=== PATIENT | female | born 2005 | race Caucasian/White ===

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

== ENCOUNTER 2023-01-06 18:24 | Emergency (ER) | payer OTHER, SELFPAY ==
[2023-01-06 18:27] VITALS: BP 136/92; PULSE 78; RESP 16; TEMP 37.1; O2SAT 98
--- NOTE | 2023-01-06 18:30 | DI.RAD_ITS ---
Exam(s) XR KNEE RT 3V AP,LAT,JOSE D EXAM: XR KNEE RT 3V AP,LAT,JOSE D CLINICAL HISTORY: pain. TECHNIQUE: 2D digital imaging was performed of the right knee. Three views obtained. AP, lateral an d PA tunnel views were obtained. COMPARISON: No exams were available for comparison FINDINGS: BONES: No acute fracture is present. No bony destructive lesion is seen. JOINTS: The knee is normally aligned. No joint effusion is seen. SOFT TISSUE: Normal. IMPRESSION: Unremarkable radiographs of the right knee. DATA REPOSITORY: RADIATION DOSE DELIVERED:
--- NOTE | 2023-01-06 18:46 | W.ED.GENAD ---
Discharge Plan Disposition Patient Disposition: Home Condition: Stable Discharge Details Clinical Impression: Knee pain, right Primary Care Provider: Marko Cortez ED Provider: Nick Calabrese Home Meds and New Rx's Prescriptions: Continued norethindrone-e.estradiol-iron [.5 (28)] 1.5 mg-30 mcg (21)/75 mg (7) tablet 1 tab PO DAILY Qty: 84 5RF Rx Instructions: 1 tab PO Of only active pills for 2 pill packs then third pill pack take placebo pills; Discharge Instructions Instructions: Knee Pain (ED) Additional Instructions: your xray did not show concerning findings at this time if pain continues in a week follow up with your primary care provider or orthopedics if you feel more ill, have severe worsening pain or fevers return to the emergency department Medical Decision Making 17 yo female who works at an [employer] was at work when she twisted to turn and when doing so had pain in her right knee, denies falls or other injuries. She was unable to leave work and was walking on her leg most of the day afterwards and so came here due to continued pain in the right knee. She arrives stable and appears well. She has anterior knee pain and tenderness along the lateral joint line. There is no swelling of the knee. She has full rom of the knee, intact distal sensation and pulses. Suspect strain of the knee but will obtain xrays to evaluate for possible fx though seems unlikely. No findings on exam or history to suggest septic joint or tendon injury. xray unremarkable on my read, will place in knee brace and provided crutches to use as needed, advised to f/u with pcp if still having painin a week, return precautions given Differential Diagnosis Differential Diagnosis: strain, sprain, contusion, fracture Imaging Data Radiologic Study: Attestation: I personally reviewed and interpreted this imaging study as follows: Imaging: X-Ray My impression: no acute findings HPI General Date/Time Provider Initiated Documentation: 01/06/23 18:35. Limitations to Documentation: no limitations. Information obtained by: patient. History of Present Illness 17 year old F presents to the emergency department with the chief complaint of right knee pain, described as moderate, Quality is described as aching, Patient started experiencing this hour(s) (5) and it has been constant. No relieving factors improve symptom(s), No exacerbating factors reported . Patient notes no other symptoms.. Patient did receive the following treatments prior to arrival, none Related Data Home Medications Medication Instructions Recorded Confirmed norethindrone 1.5 mg-ethinyl 1 tab PO DAILY #84 tabs 05/11/22 01/06/23 estradiol 30 mcg(21)/iron 75 mg(7) tablet (.01/18 (28)) Previous Rx's Medication Instructions Recorded norethindrone 1.5 mg-ethinyl 1 tab PO DAILY #84 tabs 05/11/22 estradiol 30 mcg(21)/iron 75 mg(7) tablet ( FE .01/18 (28)) Allergies Allergy/AdvReac Type Severity Reaction Status Date / Time No Known Allergies Allergy Verified 01/06/23 18:54 General Stated Complaint: Orthopedic ALEXSANDRA: 4 Review of Systems All systems reviewed & are unremarkable except as noted in HPI and below Constitutional Constitutional: Denies chills, Denies fever(s) and Denies weakness Cardiovascular Cardiovascular: Denies chest pain and Denies dyspnea Respiratory Respiratory: Denies cough and Denies dyspnea Gastrointestinal Gastrointestinal: Denies abdominal pain, Denies nausea and Denies vomiting Musculoskeletal Musculoskeletal: Denies joint swelling Integumentary/Breasts Skin/Breast: Denies rash Neurologic Neurologic: Denies weakness PFSH All Active Problems (Updated 01/06/23 @ 19:27 by Nick Calabrese MD) Knee pain, right (Acute) Pelvic pain (Acute) Recent change in frequency of bowel movements (Acute) 12/23/2021. Possible association with menses. Recommended [id number] antidiarrheal agents. Tailor's bunion of right foot (Acute) Chest pain (Acute) Oral contraceptive use (Acute) Dysmenorrhea in adolescent (Acute) Started OCPs 06/08 Routine child health exam (Acute 09/03/13) Normal weight, pediatric, BMI 5th to 84th percentile for age (Acute 09/07/16) Right lower quadrant pain (Acute) Surgical History No significant past surgical history Family History Mother Anxiety Father No problems noted. Brother Anxiety Social History Smoking/Tobacco Use Status: Current every day Tobacco Type: e-cigarettes Smoking risk assessment performed?: Yes Alcohol Intake: never Drug use: Occasionally Substance use type: former substance user and marijuana Household members: family Education Level: high school Details: [employer] Pets and animals: Yes (2 dogs, 1 cat. Brother upstairs has a dog and a hamster) Pets and animals: cat(s) and dog(s) Do you feel safe at home: Yes Do you feel safe in your relationship?: Yes Female Reproductive History Menstrual Age of Menarche: 9 Duration of menses: 6-7 days control method: pills and condoms History History 0 Para Hx # Term Pregnancies Multiple births Hx # Pregnancies Ectopic pregnancies AB induced Hx Number of Living Children AB spontaneous Exam Const General: no acute distress Orientation: alert HENMT Head: normal to inspection Ears: external ears normal General nose exam: external nose normal Mouth: moist mucous membranes Eyes General: appearance normal, both eyes and all related structures Neck Neck: normal visual inspection Resp Effort & Inspection: normal respiratory effort and able to speak in complete sentences Cardio Rate: regular rate Skin General skin exam: no rashes or lesions noted Neuro General: patient alert and patient oriented x3 Extrem General: normal to inspection, full ROM and capillary refill normal Psych Mental Status: mental status grossly normal Course Vital Signs Vital signs: Vital Signs Temperature 37.1 C 01/06/23 18:27 Pulse 78 01/06/23 18:27 Respiratory Rate 16 01/06/23 18:27 Blood Pressure 136/92 H 01/06/23 18:27 Pulse Oximetry 98 01/06/23 18:27 Temperature 37.1 C 01/06/23 18:27 Pulse 78 01/06/23 18:27 Respiratory Rate 16 01/06/23 18:27 Respiratory Effort Normal 01/06/23 18:31 Blood Pressure 136/92 H 01/06/23 18:27 Pulse Oximetry 98 01/06/23 18:27 Oxygen Delivery Method Room Air 01/06/23 18:27 Oxygen Flow Rate 0 01/06/23 18:27 Pain Level 0 01/06/23 18:27
[2023-01-06] MEDS: Acetaminophen 500 MG TAB 1000 MG PO (18:59)
--- NOTE | 2023-01-06 19:55 | DI.VRAD_ITS ---
PROCEDURE INFORMATION: Exam: XR Right Knee Exam date and time: 01/06/2023 7:21 PM Age: 17 years old Clinical indication: Right; Patient HX: R knee pain, no known trauma TECHNIQUE: Imaging protocol: Radiologic exam of the right knee. Views: 3 views. COMPARISON: MR LOWER EXTREMITY RT WO 01/27/2021 10:03 AM FINDINGS: Bones/joints: Normal. Soft tissues: Normal. IMPRESSION: No acute findings. Dictated and Authenticated by: Alonso Mari MD. Ordering:PERNELL Romero MD
--- NOTE | 2023-01-10 16:54 | NUR.NOTE ---
Nursing Note: Accessed chart for [facility] billing purposes.
== END 2023-01-06 20:03 | disposition home or self-care (01) ==
PROVIDERS: Emergency Provider Emergency Medicine; PCP Nurse Practitioner Pediatrics
DX: M25.561 Pain in right knee (principal)
CPT/HCPCS: 73562; 99282; 29505; 99283

== ENCOUNTER 2023-12-24 21:59 | Emergency (ER) | payer OTHER, SELFPAY ==
[2023-12-24 22:03] VITALS: BP 139/79; PULSE 91; RESP 16; TEMP 36.9; O2SAT 97
--- NOTE | 2023-12-24 22:13 | W.ED.GENAD ---
Discharge Plan Disposition Patient Disposition: Home Condition: Stable Discharge Details Clinical Impression: Bilateral wheezing, URI (upper respiratory infection) Primary Care Provider: Marko Cortez ED Provider: Tram Mcgraw Home Meds and New Rx's Prescriptions: New prednisone 20 mg tablet 60 mg PO DAILY 5 Days Qty: 15 0RF No Action norethindrone-e.estradiol-iron [ FE 1.01/18 (28)] 1.5 mg-30 mcg (21)/75 mg (7) tablet 1 tab PO DAILY Qty: 84 5RF Rx Instructions: 1 tab PO Of only active pills for 2 pill packs then third pill pack take placebo pills; Discharge Instructions Instructions: Upper Respiratory Infection (ED), Wheezing (ED) Additional Instructions: Use the albuterol inhaler 1 or 2 puffs every 4-6 hours as needed for wheezing and/or cough with shortness of breath. Please return to the ER if you need to use it more than 4 times in a 24-hour period. Take the prednisone for the next 5 days 3 tablets a day. Consider quitting smoking. Follow up with primary care provider in 3-5 days. Return to ED sooner if any worsening or concerns. Strep swab, COVID and flu swabs are negative at this time. Referrals: Marko Cortez, [facility] [Primary Care Provider] - 3 days HPI General Mode of arrival: ambulatory. Date/Time Provider Initiated Documentation: 12/24/23 22:02. Limitations to Documentation: no limitations. Information obtained by: patient, RN notes reviewed and old records reviewed. HPI Narrative: 18-year-old female presents to the ER with chief complaint of cough and URI type symptoms for the last 2 nights. She reports sore throat as well. Did take DayQuil today at around 7 PM. She does endorse vaping. Denies any chest pain nausea vomiting diarrhea or urinary symptoms. She does have some expiratory wheezes and congestion noted bilaterally on auscultation. Posterior oropharynx is slightly erythemic no exudate noted. Related Data Home Medications Medication Instructions Recorded Confirmed norethindrone 1.5 mg-ethinyl 1 tab PO DAILY #84 tabs 06/14/23 12/24/23 estradiol 30 mcg(21)/iron 75 mg(7) tablet ( FE .01/18 (28)) prednisone 20 mg tablet 60 mg (3 x 20 mg) PO DAILY 5 days 12/24/23 #15 tabs Previous Rx's Medication Instructions Recorded norethindrone 1.5 mg-ethinyl 1 tab PO DAILY #84 tabs 06/14/23 estradiol 30 mcg(21)/iron 75 mg(7) tablet ( FE 1.5/30 (28)) prednisone 20 mg tablet 60 mg (3 x 20 mg) PO DAILY 5 days 12/24/23 #15 tabs Allergies Allergy/AdvReac Type Severity Reaction Status Date / Time No Known Allergies Allergy Verified 12/24/23 22:09 General Stated Complaint: RespSymp ALEXSANDRA: 3 Review of Systems All systems reviewed & are unremarkable except as noted in HPI and below Cardiovascular Cardiovascular: Reports dyspnea Respiratory Respiratory: Reports as per HPI, Reports chest congestion, Reports cough, Denies hemoptysis, Reports dyspnea and Reports wheezing Allergic/Immunologic Allergic/Immunologic: Reports wheezing Exam Narrative Exam Narrative: Constitutional: Alert and oriented x3. Appears stated age. Normal body habitus. Head: Normocephalic, no trauma. Eyes: Pupils PERRL, Red reflex noted, EOM's intact. Eyelids symmetrical without lesions, discharge, or swelling. ENT: Bilateral TM's WNL, scars noted to left tympanic membrane, external ear normal to inspection, no mastoid TTP, swelling, or erythema, Nasal turbinates WNL, no nasal discharge. Normal dentition, Posterior pharynx slightly erythemic, uvula midline, no exudate. Chest: RRR, Normal S1, S2, distal pulses intact. Resp: Lungs scattered expiratory wheezes to auscultation bilaterally and scattered mild rhonchi and congestion. Abdomen: Soft, non-distended, Normoactive bowel sounds all 4 quads. Musculoskeletal: Normal gait, Moves all 4 extremities without difficulty. Skin: No suspicious rashes or lesions. Capillary refill less than 2 sec. Hematologic/Lymphatic: No ecchymosis, no lymphadenopathy. Course Vital Signs Vital signs: Vital Signs Temperature 36.9 C 12/24/23 22:03 Pulse 91 H 12/24/23 22:03 Respiratory Rate 16 12/24/23 22:03 Blood Pressure 139/79 12/24/23 22:03 Pulse Oximetry 97 12/24/23 22:03 Temperature 36.9 C 12/24/23 22:03 Pulse 91 H 12/24/23 22:03 Respiratory Rate 16 12/24/23 22:03 Respiratory Effort Normal 12/24/23 22:07 Respiratory Depth Normal 12/24/23 22:07 Blood Pressure 139/79 12/24/23 22:03 Pulse Oximetry 97 12/24/23 22:03 Oxygen Delivery Method Room Air 12/24/23 22:03 Oxygen Flow Rate 0 12/24/23 22:03 Pain Level 4 12/24/23 22:03 Medical Decision Making 18-year-old female presents to the ER with chief complaint of cough and URI type symptoms for the last 2 nights. She reports sore throat as well. Did take DayQuil today at around 7 PM. She does endorse vaping. Denies any chest pain nausea vomiting diarrhea or urinary symptoms. She does have some expiratory wheezes and congestion noted bilaterally on auscultation. Posterior oropharynx is slightly erythemic no exudate noted. POC strep flu and COVID ordered, DuoNeb and 40 mg of prednisone p.o. Rapid strep negative. On patient reevaluation wheezing has decreased and patient reports that she feels much better. Will give her an albuterol inhaler to go and prednisone 5-day stent. Discussed home care and follow-up care with mom and patient who verbalized understanding. This text was generated using [employer] system, please disregard any oddities of phrase or misspellings. Quality:SDOH Health Related Social Needs: No Data to Display PFSH All Active Problems (Updated 12/24/23 @ 22:54 by Tram Mcgraw NP) URI (upper respiratory infection) (Acute) Bilateral wheezing (Acute) Pelvic pain (Acute) Recent change in frequency of bowel movements (Acute) 12/23/2021. Possible association with menses. Recommended [id number] antidiarrheal agents. Tailor's bunion of right foot (Acute) Chest pain (Acute) Oral contraceptive use (Acute) Dysmenorrhea in adolescent (Acute) Started OCPs 06/08 Routine child health exam (Acute 09/03/13) Normal weight, pediatric, BMI 5th to 84th percentile for age (Acute 09/07/16) Right lower quadrant pain (Acute) Surgical History No significant past surgical history Family History Mother Anxiety Father No problems noted. Brother Anxiety Social History Smoking/Tobacco Use Status: Current every day Tobacco Type: e-cigarettes Smoking risk assessment performed?: Yes Alcohol Intake: never Drug use: Occasionally Substance use type: former substance user and marijuana Household members: family Education Level: high school Details: [employer] Pets and animals: Yes (2 dogs, 1 cat. Brother upstairs has a dog and a hamster) Pets and animals: cat(s) and dog(s) Do you feel safe at home: Yes Do you feel safe in your relationship?: Yes Female Reproductive History Menstrual Age of Menarche: 9 Duration of menses: 6-7 days control method: pills and condoms History History 0 Para Hx # Term Pregnancies Multiple births Hx # Pregnancies Ectopic pregnancies AB induced Hx Number of Living Children AB spontaneous
[2023-12-24 22:20] VITALS: RESP 5
[2023-12-24] MEDS: predniSONE 20 MG TAB 40 MG PO (22:20)
[2023-12-24] MEDS: Albuterol/Ipratropium 3 ML UPD VIAL UPD (22:20)
[2023-12-24] MEDS: Inhaler, Assist Device 1 EACH MC (23:05)
[2023-12-24] MEDS: Albuterol HFA 8 GM 60 PUFF INH IH (23:05)
== END 2023-12-24 23:06 | disposition home or self-care (01) ==
LOC: ER 23:21
PROVIDERS: Emergency Provider Registered Nurse Emergency; PCP Nurse Practitioner Pediatrics
DX: J06.9 Acute upper respiratory infection, unspecified (principal); R06.2 Wheezing; R05.1 Acute cough; R07.0 Pain in throat; R06.02 Shortness of breath
CPT/HCPCS: 94640; 99283; J7512; J7620

== ENCOUNTER → 2024-01-04 11:40 | Outpatient (CLI) | payer OTHER, SELFPAY ==
--- NOTE | 2024-01-04 11:00 | DI.RAD_ITS ---
Exam(s) XR CHEST 2V PA LATERAL EXAM: XR CHEST 2V PA LATERAL CLINICAL HISTORY: evaluate pathology, URI, J06.9 TECHNIQUE: 2D digital imaging was performed of the chest. Two images were obtained. PA and lateral views were obtained. COMPARISON: CR XR CHEST 2V PA LATERAL from 11/25/2020 FINDINGS: MEDIASTINUM: Normal. HEART: Normal. PULMONARY VASCULATURE: Normal. LUNGS: Clear. PLEURAL SPACE: No pleural effusion or pneumothorax. BONE:Within normal limits for the patient's age. OTHER FINDINGS:Normal. IMPRESSION: No acute pulmonary findings. DATA REPOSITORY: RADIATION DOSE DELIVERED:
== END ==
PROVIDERS: PCP Nurse Practitioner Pediatrics; Visit Provider Nurse Practitioner Family
DX: J06.9 Acute upper respiratory infection, unspecified (principal)
CPT/HCPCS: 71046

== ENCOUNTER 2024-06-27 10:18 | Outpatient (REF) | payer OTHER, SELFPAY ==
--- NOTE | 2024-06-27 09:20 | PAPFT_PTH ---
PATIENT: Christelle Valladares LOC: [facility] U#:[id number] AGE/SX: 19/F ROOM: RE06/27/[address]: Vani Calabrese NP : 2005 BED: DIS: 06/27/2024 SPEC #: [id number] RECD: 06/27/24 12:48 STATUS: ASIA REAnamika #: [id number] SCOTT: 06/27/24 09:[address]: Vani Calabrese NP DEPT: [facility] Cytology RECD BY: Ella Lee ENTERED: 06/27/24 12:48 SP TYPE: PAPFT OTHR DR: Marko Cortez NP Tissues: 1 - CX/ENDOCX FOR PAP SMEARS Procedures: PAP THIN PREP/[facility] Screening Comments: [id number] (CHLAMYDIA/GC)
[2024-06-28 11:51] LABS: GC Result Negative (Negative)
[2024-06-28 12:15] LABS: Chlamydia Result Positive (Negative)
== END 2024-06-27 10:19 | disposition home or self-care (01) ==
LOC: LBN 10:18
PROVIDERS: PCP Nurse Practitioner Pediatrics; Visit Provider Nurse Practitioner Women's Health
DX: Z30.41 Encounter for surveillance of contraceptive pills (principal); Z01.419 Encounter for gynecological examination (general) (routine) without abnormal findings; Z12.4 Encounter for screening for malignant neoplasm of cervix; Z11.3 Encounter for screening for infections with a predominantly sexual mode of transmission
CPT/HCPCS: 87491; 87591; 88142

== ENCOUNTER 2024-07-24 11:59 | Outpatient (REF) | payer OTHER, SELFPAY ==
[2024-07-25 12:43] LABS: Chlamydia Result Negative (Negative); GC Result Negative (Negative)
== END 2024-07-24 12:00 | disposition home or self-care (01) ==
LOC: LBN 11:59
PROVIDERS: PCP Nurse Practitioner Pediatrics; Visit Provider Obstetrics & Gynecology
DX: A64 Unspecified sexually transmitted disease (principal); A74.9 Chlamydial infection, unspecified
CPT/HCPCS: 87491; 87591

== ENCOUNTER 2025-07-17 10:04 | Outpatient (REF) | payer OTHER, SELFPAY ==
[2025-07-17 14:45] LABS: HCT 41.9 % (36.0-46.0); HGB 13.8 g/dL (11.2-15.7); MCH 28.8 pg (27.0-33.0); MCHC 32.9 % (32.0-36.0); MCV 88 fL (80-95); MPV 10.6 fL (8.0-11.0); Platelet Count 293 10^3/uL (130-400); RBC 4.79 10^6/uL (3.93-5.22); RDW 13.0 % (11.7-14.6); RDW-SD 41.8 fL; WBC 5.68 10^3/uL (4.4-10.8)
[2025-07-17 15:03] LABS: Hemoglobin A1C 4.7 % (<5.7)
[2025-07-17 15:07] LABS: ALT 25 U/L (10-49); AST 23 U/L (<34); Albumin 4.4 g/dL (3.2-5.0); Alkaline Phosphatase 72 U/L (46-116); Anion Gap 8.9 mmol/L (3-11); BUN 12 mg/dL (9-23); Bilirubin, Total 0.40 mg/dL (0.2-1.2); CO2 23.1 mmol/L (20.0-31.0); Calcium 9.6 mg/dL (8.3-10.6); Chloride 108 mmol/L (98-107); Cholesterol 203 mg/dL (<200); Glucose 80 mg/dL (74-106); HDL Cholesterol 59 mg/dL (>40); Potassium 4.5 mmol/L (3.5-5.1); Sodium 140 mmol/L (136-145); Total Protein 7.1 g/dL (5.7-8.2)
== END 2025-07-17 10:05 | disposition home or self-care (01) ==
LOC: NCHCN 10:04
DX: Z13.0 Encounter for screening for diseases of the blood and blood-forming organs and certain disorders involving the immune mechanism (principal); Z13.220 Encounter for screening for lipoid disorders; Z13.1 Encounter for screening for diabetes mellitus
CPT/HCPCS: 80053; 80061; 85027; 83036